=== PATIENT | female | born 1995 | race African-American/Black ===

== ENCOUNTER 2020-05-13 13:15 | Inpatient (IN) | payer BC ==
[2020-05-13] MEDS ORDERED: AMPICILLIN SODIUM 2 GM VIAL ONE (14:34)
[2020-05-13 14:43] VITALS: BMI 34.1
--- NOTE | 2020-05-13 14:47 | HP ---
Past Medical History - Primary Care Physician PCP:: Brian Davalos - Admission Chief Complaint: Lowwer abdominal pain History of Present Illness: 24 yo , MALKA 05/28/20, MALKA 37 + weeks, with above complaints. No bleeding or leakage of fluid per vagina. History Source: Patient Limitations to Obtaining History: No Limitations - Past Medical History ...: 2 ...Para: 1 ...Term: 1 ... Weeks Gestation by Dates: 37.6 ...EDC by Sono: 05/28/20 - Past Surgical History Hx Myomectomy: No Hx Transabdominal Cerclage: No - Smoking History Smoking history: Never smoked Have you smoked in the past 12 months: No - Alcohol/Substance Use Hx Alcohol Use: No History of Substance Use: reports: None - Social History Usual Living Arrangement: Yes: With Parent Do you think of yourself as: Straight/Heterosexual History of Recent Travel: No Home Medications - Allergies Allergies/Adverse Reactions: Allergies Allergy/AdvReac Type Severity Reaction Status Date / Time No Known Allergies Allergy Verified 05/13/20 14:07 - Home Medications Home Medications: Ambulatory Orders Tablet 1 tab PO DAILY 05/13/20 Family Medical History Family History: Denies Review of Systems - Review of Systems Constitutional: reports: No Symptoms Eyes: reports: No Symptoms HENT: reports: No Symptoms Neck: reports: No Symptoms Cardiovascular: reports: No Symptoms Respiratory: reports: No Symptoms Gastrointestinal: reports: No Symptoms Genitourinary: reports: No Symptoms Breasts: reports: No Symptoms Reported Musculoskeletal: reports: No Symptoms Integumentary: reports: No Symptoms Neurological: reports: No Symptoms Endocrine: reports: No Symptoms Hematology/Lymphatic: reports: No Symptoms Psychiatric: reports: No Symptoms Physical Exam - Maternity Constitutional: Yes: Well Nourished Eyes: Yes: WNL HENT: Yes: WNL Neck: Yes: WNL Cardiovascular: Yes: WNL - Abdominal Exam/OB Fundal Height: 37 Number of Fetuses: Single Presentation: Vertex Contractions: Yes Regularity: Regular Intensity: Mild/Mod Monitor Mode: External Heart Rate (range): 140 Heart Rate Location: [facility] Category: I Accelerations: Uniform Decelerations: None - Vaginal Exam/OB Vaginal Bleeding: No Speculum Exam: No Dilatation (cm): 4 Effacement (%): 100 Amniotic Membrane Status: Intact Presentation: Vertex/Position Station: -1 - Physical Exam Musculoskeletal: Yes: WNL Extremities: Yes: WNL Edema: No Integumentary: Yes: WNL ...Motor Strength: WNL Psychiatric: Yes: WNL Hemorrhage Risk Assessment - Risk Factors Medium Risk Factors: Yes: None High Risk Factors: Yes: None Risk Score: 1 Risk Level: Medium Risk Problem List - Problems (1) 37 weeks gestation of Code(s): Z3A.37 - 37 WEEKS GESTATION OF Assessment/Plan Early term gestation in labor Admit L and D for management
[2020-05-13] MEDS ORDERED: AMPICILLIN - 2 GM in SODIUM CHLORIDE 100 ML IVPB ONE (14:59)
[2020-05-13] MEDS: ELECTROLYTE-148 SOLN 1,000 ML IV SCH ×2 (15:34→17:43)
[2020-05-13] MEDS ORDERED: PCA PUMP NR ONE ×2 (16:27→21:52)
[2020-05-13] MEDS ORDERED: FENTANYL/BUPIVACAINE/NS/PF - PCEA - 50 ML DISP.SYRIN EP ONE (16:27)
[2020-05-13 16:30] LABS: INR 0.88 (0.83-1.09); PROTHROMBIN TIME (PATIENT) 10.4 SEC (9.7-13.0)
[2020-05-13 16:32] LABS: BASO % 0.3 % (0-2.0); HEMATOCRIT 38.1 % (32.4-45.2); HEMOGLOBIN 12.5 GM/dL (10.7-15.3); LYMPH % 19.1 % (8-40); MCH 31.2 pg (25.7-33.7); MCHC 32.8 g/dl (32.0-36.0); MEAN CELL VOLUME 95.1 fl (80-96); MEAN PLT VOLUME 10.9 fl (7.5-11.1); MONO % 8.9 % (3.8-10.2); NEUT % 70.7 % (42.8-82.8); PLATELET COUNT 141 K/MM3 (134-434); RBC 4.01 M/mm3 (3.60-5.2); RDW 13.3 % (11.6-15.6); WHITE BLOOD COUNT 8.1 K/mm3 (4.0-10.0)
[2020-05-13 16:57] LABS: BLOOD UREA NITROGEN 4.6 mg/dL (7-18); CALCIUM 8.9 mg/dL (8.5-10.1); CREATININE 0.8 mg/dL (0.55-1.3); POTASSIUM 3.8 mmol/L (3.5-5.1)
[2020-05-13] MEDS ORDERED: NALOXONE HCL 0.4 MG/ML VIAL IVPUSH PRN (17:29)
[2020-05-13] MEDS ORDERED: FENTANYL/BUPIVACAINE/NS/PF - PCEA - 50 ML DISP.SYRIN EP SCH (17:30)
[2020-05-13] MEDS ORDERED: AMPICILLIN - 1 GM in SODIUM CHLORIDE 100 ML IVPB SCH ×2 (18:30→19:30)
--- NOTE | 2020-05-13 18:33 | PN ---
Progress Note (short form) - Note Progress Note: Patient comfortable on epidural analgesia VSS, afebrile EFM - Baseline 140/min, moderate variability, accelerations, no decelerations Tocos q 5-6 Pelvic - 5cm/100%/-1, AROM performed, clear fluid. Plan - Early term gestation in labor Anticipate vaginal delivery Problem List - Problems (1) 37 weeks gestation of Code(s): Z3A.37 - 37 WEEKS GESTATION OF
[2020-05-13] MEDS ORDERED: AMPICILLIN SODIUM 1 GM VIAL ONE (19:15)
[2020-05-13] MEDS ORDERED: LIDOCAINE HCL 1% PRESERVATIVE FREE - 30ML VIAL ONE (19:58)
[2020-05-13] MEDS ORDERED: OXYTOCIN 20 UNITS in 0.9% NS 20 UNIT/1,000 ML INFUS.BAG IV ONE ×2 (19:58→22:57)
--- NOTE | 2020-05-13 21:16 | PN ---
Progress Note (short form) - Note Progress Note: Patient complaining pf lower abdominal pressure. VSS, afebrile EFM - Baseline 120/min, moderate variability, accelerations. no decelerations Tocos - q4 Pelvic - Anterior lip/100%/+1/vertex. Plan - Early term gestation approaching second stage labor Anticipate vaginal delivery Problem List - Problems (1) 37 weeks gestation of Code(s): Z3A.37 - 37 WEEKS GESTATION OF
--- NOTE | 2020-05-13 21:18 | PN ---
Delivery - Delivery Vaginal Delivery: No Problems, Spontaneous Type of Anesthesia: Local, Epidural Episiotomy/Laceration: Right Mediolateral EBL (cc): 300 Delivery, Single - Stages of Labor Date 1st Stage Initiatied: 05/13/20 Date 2nd Stage Initiated: 05/13/20 Date of Delivery: 05/13/20 Date Placenta Delivered: 05/13/20 Placenta: Yes: Spontaneous, Normal Configuration - Condition of Infant Manager Inside/Supervisor Ride Assembly Present: No Infant Gender: Male Position: Left, OA - 1 Minute Total Score: 9 5 Minutes Total Score: 9 - Feeding Plan Initial Plan: Exclusive throughout hospitalization
[2020-05-13] MEDS ORDERED: BENZOCAINE 28 GM HEMORRHOIDAL OINTMENT TP PRN (21:19)
[2020-05-13] MEDS ORDERED: WITCH HAZEL 50% (TUCKS) 40 PAD/JAR PAD TP PRN (21:19)
[2020-05-13] MEDS ORDERED: METHYLERGONOVINE MALEATE 0.2 MG/1 ML AMP IM PRN (21:19)
[2020-05-13] MEDS: OXYTOCIN 20 UNITS in 0.9% NS 20 UNIT/1,000 ML INFUS.BAG IV SCH (21:30)
[2020-05-13 21:52] LABS: CORD BASE EXCESS -1.6 mmol/L (0-2); CORD HCO3 26.7 mmHg (20-29); CORD PCO2 60.4 mmHg (30-78); CORD pH 7.264 (7.14-7.44)
[2020-05-13 21:58] LABS: CORD BASE EXCESS -1.9 mmol/L (0-2); CORD HCO3 25.2 mmHg (20-29); CORD PCO2 51.7 mmHg (30-78); CORD pH 7.306 (7.14-7.44)
[2020-05-13] MEDS: BENZOCAINE 20% 57 GM BOTTLE TP PRN (23:24)
[2020-05-13] MEDS: ACETAMINOPHEN 325 MG TABLET (FP) PO PRN (23:25)
[2020-05-13] MEDS: IBUPROFEN 600 MG TABLET (FP) PO PRN (23:26)
[2020-05-14] MEDS: ACETAMINOPHEN 325 MG TABLET (FP) PO PRN ×5 (02:39→22:04)
[2020-05-14] MEDS: IBUPROFEN 600 MG TABLET (FP) PO PRN ×5 (02:40→22:04)
[2020-05-14 08:47] LABS: BASO % 0.5 % (0-2.0); EOS % 1.6 % (0-4.5); HEMATOCRIT 33.1 % (32.4-45.2); HEMOGLOBIN 10.9 GM/dL (10.7-15.3); LYMPH % 18.7 % (8-40); MEAN CELL VOLUME 93.9 fl (80-96); MEAN PLT VOLUME 10.5 fl (7.5-11.1); MONO % 8.6 % (3.8-10.2); NEUT % 70.6 % (42.8-82.8); PLATELET COUNT 139 K/MM3 (134-434); RBC 3.52 M/mm3 (3.60-5.2); RDW 13.4 % (11.6-15.6); WHITE BLOOD COUNT 9.8 K/mm3 (4.0-10.0)
[2020-05-14] MEDS ORDERED: DIPHTH,PERTUSS(ACELL),TET 0.5 ML DISP.SYRIN IM ONE (10:00)
[2020-05-14] MEDS: DOCUSATE SODIUM 100 MG CAPSULE (FP) PO SCH (10:06)
[2020-05-14] MEDS: PRENATAL VITAMINS W/ FOLIC ACID TABLET (FP) PO SCH (10:06)
--- NOTE | 2020-05-14 11:05 | PN ---
Progress Note (short form) - Note Progress Note: pt. without complaints vss - af abd: soft, nt, fundus firm ve: intact, mod lochia ext: no calf tenderness b/l a/p s/p last night pt. stable ~12 hrs PP plan for possible discharge in am
[2020-05-14] MEDS ORDERED: SENNOSIDES/DOCUSATE COMBO (SENNA PLUS) TABLET (UD) PO PRN (22:00)
[2020-05-15] MEDS: OXYTOCIN 20 UNITS in 0.9% NS 20 UNIT/1,000 ML INFUS.BAG IV SCH (02:14)
[2020-05-15] MEDS: ELECTROLYTE-148 SOLN 1,000 ML IV SCH (02:14)
[2020-05-15] MEDS: ACETAMINOPHEN 325 MG TABLET (FP) PO PRN (02:17)
[2020-05-15] MEDS: IBUPROFEN 600 MG TABLET (FP) PO PRN ×2 (02:17→11:42)
[2020-05-15] MEDS: DOCUSATE SODIUM 100 MG CAPSULE (FP) PO SCH (10:43)
[2020-05-15] MEDS: PRENATAL VITAMINS W/ FOLIC ACID TABLET (FP) PO SCH (10:43)
[2020-05-15] MEDS: BENZOCAINE 20% 57 GM BOTTLE TP PRN (11:44)
[2020-05-15 17:34] VITALS: BP 122/80; PULSE 84; TEMP 97.9
== END 2020-05-15 17:20 | disposition home or self-care (01) | DRG 807 ==
LOC: JDEL 13:15 → JLDR 14:25 → J3W 23:08
PROVIDERS: ADMIT Obstetrics & Gynecology; ATTEND Obstetrics & Gynecology
PROC: 10E0XZZ Delivery of Products of Conception, External Approach (ICD-10-PCS; principal; 2020-05-13)
PROC: 0W8NXZZ Division of Female Perineum, External Approach (ICD-10-PCS; 2020-05-13)
DX: O80 Encounter for full-term uncomplicated delivery (principal); Z37.0 Single live birth; Z3A.37 37 weeks gestation of pregnancy
CPT/HCPCS: 36415; 36600; 59409; 80048; 82803; 85025; 85610; 85730; 86780; 86850; 86900; 86901; 87389; 90715; U0003